=== PATIENT | female | born 1980 | race African-American/Black ===

== ENCOUNTER 2022-04-18 07:07 | Day surgery (SDC) | payer OTHER ==
[~2022-04-18] VITALS: Ht 170.2 cm; Wt 53.5 kg
[2022-04-18 07:57] LABS: BASOPHILS # (AUTO) 0.1 K/uL (0.00-0.22); EOSINOPHILS # (AUTO) 0.3 K/uL (0-0.4); EOSINOPHILS % (AUTO) 4.5 % (0.0-4.0); HEMATOCRIT 37.2 % (36-48); HEMOGLOBIN 12.6 g/dL (12.0-16.0); LYMPHOCYTES # (AUTO) 2.9 K/uL (2.5-16.5); LYMPHOCYTES % (AUTO) 39.4 % (20.5-51.1); MEAN CORPUSCULAR HEMOGLOBIN 33 pg (27-31); MEAN CORPUSCULAR HGB CONC 34 g/dL (33-37); MEAN CORPUSCULAR VOLUME 96.7 fL (80-94); MONOCYTES # (AUTO) 0.6 K/uL (0.8-1.0); MONOCYTES % (AUTO) 8.3 % (1.7-9.3); NEUTROPHILS # (AUTO) 3.5 K/uL (1.8-7.7); NEUTROPHILS % (AUTO) 46.8 % (42.2-75.2); PLATELET COUNT (AUTO) 316 K/uL (140-450); RED BLOOD CELL COUNT(AUTO) 3.85 MIL/uL (4.20-5.40); RED CELL DISTRIBUTION WIDTH 13.4 % (11.6-13.7); WHITE BLOOD COUNT (AUTO) 7.5 K/uL (4.8-10.8)
[2022-04-18 08:16] LABS: ALBUMIN 4.3 g/dL (3.4-5.0); ANION GAP 14.5 (8-16); CARBON DIOXIDE 26.4 mmol/L (21-32); CREATININE 0.8 mg/dL (0.6-1.3); POTASSIUM 4.9 mmol/L (3.5-5.1); TOTAL BILIRUBIN 0.6 mg/dL (0.0-1.0)
[2022-04-18] MEDS ORDERED: PROPOFOL 200 MG/20 ML VIAL IV ONE ×3 (08:16→09:25)
[2022-04-18] MEDS ORDERED: fentaNYL citrate 0.05 MG/ML VIAL ONE (08:16)
[2022-04-18] MEDS ORDERED: ONDANSETRON 4 MG/2 ML VIAL ONE (09:11)
[2022-04-18] MEDS ORDERED: MEPERIDINE 25 MG/ML SYR IVP PRN (09:30)
[2022-04-18] MEDS ORDERED: HYDROmorphone 1 MG/ML AMP IVP PRN (09:30)
[2022-04-18] MEDS ORDERED: ONDANSETRON 4 MG/2 ML VIAL IVP PRN (09:30)
[2022-04-18] MEDS ORDERED: LACTATED RINGERS 1,000 ML IV SCH (09:30)
[2022-04-18] MEDS ORDERED: diphenhydrAMINE 50 MG/ML VIAL IVP PRN (09:30)
== END 2022-04-18 10:32 | disposition home or self-care (01) ==
LOC: MDS 07:07 → MMU 07:08 → MDS 10:32
PROVIDERS: ATTEND Internal Medicine Gastroenterology
DX: R10.13 Epigastric pain (principal); D50.9 Iron deficiency anemia, unspecified; K29.70 Gastritis, unspecified, without bleeding; I10 Essential (primary) hypertension; E78.5 Hyperlipidemia, unspecified; F17.210 Nicotine dependence, cigarettes, uncomplicated; Z79.899 Other long term (current) drug therapy; Z20.822 Contact with and (suspected) exposure to COVID-19
CPT/HCPCS: 36415; 43239; 80053; 85025; 86677; 87426; J2405; J2704; J3010